=== PATIENT | female | born 2000 | race Caucasian/White ===

== ENCOUNTER 2019-01-12 21:08 | Emergency (ER) | payer OTHER ==
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
[2019-01-12 22:41] VITALS: BP 146/81
== END 2019-01-12 22:39 | disposition home or self-care (01) ==
LOC: ED 21:08
DX: R51 Headache (principal); V43.52XA Car driver injured in collision with other type car in traffic accident, initial encounter; Y92.410 Unspecified street and highway as the place of occurrence of the external cause; M54.2 Cervicalgia
CPT/HCPCS: 99282